=== PATIENT | female | born 2000 | race Caucasian/White ===

== ENCOUNTER 2022-07-18 12:38 | Emergency (ER) | payer MEDICAID, OTHER ==
[~2022-07-18] VITALS: Ht 170.2 cm; Wt 154.7 kg
[2022-07-18] MEDS ORDERED: ADENOSINE 6MG 2ML INJECTION As Ordered ONE (13:03)
[2022-07-18] MEDS ORDERED: ADENOSINE 6MG 2ML INJECTION IV STA ×2 (13:03→13:12)
[2022-07-18] MEDS ORDERED: NS 1,000 ML IV ONE (13:05)
[2022-07-18 13:32] LABS: BASO % 0.5 % (0.0-1.0); EOS # 0.2 10^3/uL (0.0-0.5); EOS % 2.8 % (0.0-3.0); HEMATOCRIT 44.1 % (36.0-47.0); HEMOGLOBIN 13.9 g/dl (12.0-15.5); LYMPH # 2.4 10^3/uL (1.5-5.0); LYMPH % 30.5 % (24.0-44.0); MEAN CORPUSCULAR HEMOGLOBIN 28.5 pg (27.0-33.0); MEAN CORPUSCULAR HGB CONC 31.5 g/dl (32.0-36.5); MEAN CORPUSCULAR VOLUME 90.4 fl (80.0-96.0); MONO # 0.5 10^3/uL (0.0-0.8); MONO % 5.9 % (2.0-8.0); NEUTROPHILS # 4.8 10^3/uL (1.5-8.5); PLATELET COUNT, AUTOMATED 288 10^3/uL (150-450); RED BLOOD COUNT 4.88 10^6/uL (4.00-5.40)
[2022-07-18 13:42] LABS: PROTHROMBIN TIME 13.4 SECONDS (12.5-14.5)
[2022-07-18 13:56] LABS: CPK CREATINE PHOSPHOKINASE 71 U/L (34-145)
[2022-07-18 13:57] LABS: BLOOD UREA NITROGEN 10 MG/DL (9-23); CALCIUM LEVEL 10.5 MG/DL (8.5-10.1); CARBON DIOXIDE LEVEL 28 MMOL/L (20-31); CHLORIDE LEVEL 106 MMOL/L (98-107); CK-MB VALUE MASS < 1.0 NG/ML (<3.6); CREATININE FOR GFR 0.77 MG/DL (0.55-1.30); GLOMERULAR FILTRATION RATE > 60.0 (>60); GLUCOSE, FASTING 96 MG/DL (60-100); POTASSIUM SERUM 4.2 MMOL/L (3.5-5.1); SODIUM LEVEL 142 MMOL/L (136-145)
[2022-07-18] MEDS ORDERED: ASPI81TA26 PO (14:55)
[2022-07-18 15:04] VITALS: BP 131/58; TEMP 97.9; O2SAT 98
== END 2022-07-18 15:25 | disposition home or self-care (01) ==
LOC: M ED 12:38 → EDBD 12:38 → M ED 15:25
DX: I47.1 Supraventricular tachycardia (principal)
CPT/HCPCS: 71045; 80048; 82550; 82553; 85025; 85610; 93005; 93041; 94760; 96374; 96376; 99285; J0153

== ENCOUNTER → 2022-08-17 | Outpatient (REF) | payer OTHER ==
[~2022-08-17] MED LIST: ASPI81TA26 PO
[2022-08-17 16:35] LABS: BASO % 0.5 % (0.0-1.0); EOS # 0.2 10^3/uL (0.0-0.5); EOS % 3.3 % (0.0-3.0); HEMATOCRIT 43.4 % (36.0-47.0); HEMOGLOBIN 13.9 g/dl (12.0-15.5); LYMPH # 2.4 10^3/uL (1.5-5.0); LYMPH % 37.2 % (24.0-44.0); MEAN CORPUSCULAR HEMOGLOBIN 28.8 pg (27.0-33.0); MEAN CORPUSCULAR VOLUME 89.9 fl (80.0-96.0); MONO # 0.6 10^3/uL (0.0-0.8); NEUTROPHILS # 3.1 10^3/uL (1.5-8.5); NEUTROPHILS % 48.7 % (36.0-66.0); PLATELET COUNT, AUTOMATED 258 10^3/uL (150-450); RED BLOOD COUNT 4.83 10^6/uL (4.00-5.40); WHITE BLOOD COUNT 6.4 10^3/uL (4.0-10.0)
[2022-08-17 16:45] LABS: ALBUMIN 3.9 G/DL (3.2-5.2); ALKALINE PHOSPHATASE 86 U/L (46-116); ALT/SGPT 90 U/L (7.0-40); AST/SGOT 49 U/L (<34); BILIRUBIN,TOTAL 0.4 MG/DL (0.3-1.2); BLOOD UREA NITROGEN 10 MG/DL (9-23); CALCIUM LEVEL 10.5 MG/DL (8.5-10.1); CARBON DIOXIDE LEVEL 27 MMOL/L (20-31); CHLORIDE LEVEL 104 MMOL/L (98-107); CHOLESTEROL LEVEL 117 MG/DL (<200); CHOLESTEROL RISK RATIO 3.23 (<5); CREATININE FOR GFR 0.71 MG/DL (0.55-1.30); GLOMERULAR FILTRATION RATE > 60.0 (>60); GLUCOSE, FASTING 107 MG/DL (60-100); HDL CHOLESTEROL 36.2 MG/DL (>40); NON-HDL-C 80.8 MG/DL; POTASSIUM SERUM 4.2 MMOL/L (3.5-5.1); SODIUM LEVEL 138 MMOL/L (136-145); TOTAL PROTEIN 7.7 G/DL (5.7-8.2); TRIGLYCERIDES LEVEL 149 MG/DL (<150)
[2022-08-17 16:47] LABS: TOTAL 25(OH) VITAMIN D 9.9 NG/ML (20.0-100.0)
== END ==
LOC: M LAB REF 16:15
PROVIDERS: ATTEND Nurse Practitioner Family
DX: Z13.228 Encounter for screening for other metabolic disorders (principal)

== ENCOUNTER 2022-09-23 08:34 | Emergency (ER) | payer OTHER ==
[~2022-09-23] VITALS: Ht 172.7 cm; Wt 151.6 kg
[2022-09-23 11:29] LABS: BASO % 0.4 % (0.0-1.0); EOS # 0.3 10^3/uL (0.0-0.5); EOS % 3.5 % (0.0-3.0); HEMATOCRIT 44.2 % (36.0-47.0); LYMPH # 2.8 10^3/uL (1.5-5.0); LYMPH % 37.9 % (24.0-44.0); MEAN CORPUSCULAR HEMOGLOBIN 28.3 pg (27.0-33.0); MEAN CORPUSCULAR HGB CONC 31.7 g/dl (32.0-36.5); MEAN CORPUSCULAR VOLUME 89.3 fl (80.0-96.0); MONO # 0.4 10^3/uL (0.0-0.8); MONO % 5.6 % (2.0-8.0); NEUTROPHILS # 3.9 10^3/uL (1.5-8.5); NEUTROPHILS % 52.5 % (36.0-66.0); PLATELET COUNT, AUTOMATED 237 10^3/uL (150-450); RED BLOOD COUNT 4.95 10^6/uL (4.00-5.40); WHITE BLOOD COUNT 7.4 10^3/uL (4.0-10.0)
[2022-09-23] MEDS ORDERED: NS 1,000 ML IV ONE (11:35)
[2022-09-23 11:59] LABS: BLOOD UREA NITROGEN 12 MG/DL (9-23); CALCIUM LEVEL 9.7 MG/DL (8.5-10.1); CARBON DIOXIDE LEVEL 27 MMOL/L (20-31); CHLORIDE LEVEL 103 MMOL/L (98-107); CREATININE FOR GFR 0.65 MG/DL (0.55-1.30); GLOMERULAR FILTRATION RATE > 60.0 (>60); GLUCOSE, FASTING 88 MG/DL (60-100); SODIUM LEVEL 139 MMOL/L (136-145)
[2022-09-23 12:01] LABS: FREE T4 0.92 NG/DL (0.89-1.76); THYROID STIMULATING HORMONE 1.754 uIU/ML (0.55-4.78)
[2022-09-23 13:01] VITALS: BP 136/66; TEMP 97.8; O2SAT 100
== END 2022-09-23 13:03 | disposition home or self-care (01) ==
LOC: M ED 08:34
DX: I47.1 Supraventricular tachycardia (principal); I49.1 Atrial premature depolarization; Z79.82 Long term (current) use of aspirin

== ENCOUNTER → 2022-10-06 | Outpatient (CLI) | payer OTHER | LOC: M SLEEP HO 12:41 | PROVIDERS: ATTEND Internal Medicine Cardiovascular Disease | DX: G47.9 Sleep disorder, unspecified (principal); R60.0 Localized edema; J98.4 Other disorders of lung ==

== ENCOUNTER → 2022-10-06 | Outpatient (CLI) | payer OTHER | LOC: M CARPUL 10:34 | PROVIDERS: ATTEND Nurse Practitioner Family | DX: I47.1 Supraventricular tachycardia (principal) ==

== ENCOUNTER → 2022-11-25 | Outpatient (REF) | payer OTHER ==
[2022-11-25 13:05] LABS: ALBUMIN 3.6 G/DL (3.2-5.2); BILIRUBIN,DIRECT 0.1 MG/DL (<0.4); BILIRUBIN,TOTAL 0.3 MG/DL (0.3-1.2); TOTAL PROTEIN 7.2 G/DL (5.7-8.2)
[2022-11-25 13:15] LABS: HEMOGLOBIN A1c 4.7 % (4.0-6.0)
== END ==
LOC: M LAB REF 11:37
PROVIDERS: ATTEND Nurse Practitioner Family
DX: R74.8 Abnormal levels of other serum enzymes (principal); R73.03 Prediabetes

== ENCOUNTER 2022-12-08 08:52 | Emergency (ER) | payer OTHER ==
[~2022-12-08] VITALS: Ht 172.7 cm; Wt 151.5 kg
[2022-12-08] MEDS ORDERED: DIGO0.253 (08:59)
[2022-12-08] MEDS ORDERED: ERGO500029 (08:59)
[2022-12-08] MEDS ORDERED: ADENOSINE 6MG 2ML INJECTION As Ordered ONE (09:47)
[2022-12-08] MEDS ORDERED: ADENOSINE 6MG 2ML INJECTION IV STA (09:54)
[2022-12-08] MEDS ORDERED: NS 1,000 ML IV ONE (09:55)
[2022-12-08 10:11] LABS: BASO % 0.5 % (0.0-1.0); EOS # 0.3 10^3/uL (0.0-0.5); EOS % 3.5 % (0.0-3.0); HEMATOCRIT 44.1 % (36.0-47.0); HEMOGLOBIN 13.9 g/dl (12.0-15.5); LYMPH # 2.6 10^3/uL (1.5-5.0); LYMPH % 30.9 % (24.0-44.0); MEAN CORPUSCULAR HGB CONC 31.5 g/dl (32.0-36.5); MEAN CORPUSCULAR VOLUME 88.7 fl (80.0-96.0); MONO # 0.5 10^3/uL (0.0-0.8); MONO % 5.7 % (2.0-8.0); NEUTROPHILS % 59.2 % (36.0-66.0); PLATELET COUNT, AUTOMATED 279 10^3/uL (150-450); RED BLOOD COUNT 4.97 10^6/uL (4.00-5.40); WHITE BLOOD COUNT 8.5 10^3/uL (4.0-10.0)
[2022-12-08] MEDS ORDERED: atenoloL 25 MG TAB PO ONE (10:15)
[2022-12-08 10:20] VITALS: BP 139/95
[2022-12-08 10:24] LABS: CPK CREATINE PHOSPHOKINASE 103 U/L (34-145)
[2022-12-08 10:25] LABS: BLOOD UREA NITROGEN 13 MG/DL (9-23); CALCIUM LEVEL 9.6 MG/DL (8.5-10.1); CARBON DIOXIDE LEVEL 28 MMOL/L (20-31); CHLORIDE LEVEL 103 MMOL/L (98-107); CREATININE FOR GFR 0.76 MG/DL (0.55-1.30); GLOMERULAR FILTRATION RATE > 60.0 (>60); GLUCOSE, FASTING 127 MG/DL (60-100); POTASSIUM SERUM 4.2 MMOL/L (3.5-5.1); SODIUM LEVEL 138 MMOL/L (136-145)
[2022-12-08 10:26] LABS: CK-MB VALUE MASS < 1.0 NG/ML (<3.6); MB/CK RELATIVE INDEX 0.97 (< OR =4)
[2022-12-08 10:47] LABS: HCG, SERUM QUALITATIVE NEGATIVE (NEGATIVE)
[2022-12-08 11:00] VITALS: O2SAT 99
[2022-12-08] MEDS ORDERED: ATEN25TA PO (11:07)
[2022-12-08 11:14] VITALS: TEMP 97.2
[2022-12-08 11:17] VITALS: BP 129/64
== END 2022-12-08 11:22 | disposition home or self-care (01) ==
LOC: M ED 08:52
DX: I47.10 Supraventricular tachycardia, unspecified (principal); Z79.899 Other long term (current) drug therapy; Z79.82 Long term (current) use of aspirin
CPT/HCPCS: 80048; 80162; 82550; 82553; 83735; 84703; 85025; 93005; 93041; 96361; 96374; 99284; J0153

== ENCOUNTER 2022-12-11 09:55 | Emergency (ER) | payer OTHER ==
[~2022-12-11] VITALS: Ht 172.7 cm; Wt 151.5 kg
[~2022-12-11 09:55] MED LIST changes: +ATEN25TA PO; +DIGO0.253; +ERGO500029
[2022-12-11 10:43] LABS: BASO % 0.2 % (0.0-1.0); EOS # 0.3 10^3/uL (0.0-0.5); HEMATOCRIT 41.9 % (36.0-47.0); HEMOGLOBIN 13.3 g/dl (12.0-15.5); LYMPH # 2.4 10^3/uL (1.5-5.0); LYMPH % 28.3 % (24.0-44.0); MEAN CORPUSCULAR HEMOGLOBIN 27.9 pg (27.0-33.0); MEAN CORPUSCULAR HGB CONC 31.7 g/dl (32.0-36.5); MEAN CORPUSCULAR VOLUME 87.8 fl (80.0-96.0); MONO # 0.5 10^3/uL (0.0-0.8); MONO % 5.7 % (2.0-8.0); NEUTROPHILS # 5.2 10^3/uL (1.5-8.5); NEUTROPHILS % 62.6 % (36.0-66.0); PLATELET COUNT, AUTOMATED 280 10^3/uL (150-450); RED BLOOD COUNT 4.77 10^6/uL (4.00-5.40); WHITE BLOOD COUNT 8.3 10^3/uL (4.0-10.0)
[2022-12-11] MEDS ORDERED: DIGOXIN INJ 0.5 MG/2 ML AMP IV ONE (10:45)
[2022-12-11 11:11] LABS: ETHYL ALCOHOL (ETHANOL) < 0.003 % (0.000-0.010)
[2022-12-11 11:12] LABS: ALBUMIN 3.8 G/DL (3.2-5.2); ALKALINE PHOSPHATASE 84 U/L (46-116); ALT/SGPT 71 U/L (7.0-40); AST/SGOT 39 U/L (<34); BILIRUBIN,DIRECT 0.1 MG/DL (<0.4); BILIRUBIN,TOTAL 0.4 MG/DL (0.3-1.2); BLOOD UREA NITROGEN 14 MG/DL (9-23); CALCIUM LEVEL 10.3 MG/DL (8.5-10.1); CARBON DIOXIDE LEVEL 29 MMOL/L (20-31); CHLORIDE LEVEL 102 MMOL/L (98-107); CK-MB VALUE MASS < 1.0 NG/ML (<3.6); CREATININE FOR GFR 0.75 MG/DL (0.55-1.30); GLOMERULAR FILTRATION RATE > 60.0 (>60); GLUCOSE, FASTING 108 MG/DL (60-100); HCG, SERUM QUALITATIVE NEGATIVE (NEGATIVE); POTASSIUM SERUM 4.6 MMOL/L (3.5-5.1); SODIUM LEVEL 138 MMOL/L (136-145); TOTAL PROTEIN 7.7 G/DL (5.7-8.2)
[2022-12-11 11:14] LABS: THYROID STIMULATING HORMONE 1.491 uIU/ML (0.55-4.78)
[2022-12-11 11:19] LABS: CPK CREATINE PHOSPHOKINASE 96 U/L (34-145); MB/CK RELATIVE INDEX 1.04 (< OR =4)
[2022-12-11 11:26] LABS: AMPHETAMINES LEVEL URINE NEGATIVE (NEGATIVE); BARBITURATES URINE NEGATIVE (NEGATIVE); BENZODIAZEPINES URINE NEGATIVE (NEGATIVE); CANNABINOIDS URINE NEGATIVE (NEGATIVE); COCAINE METABOLITE URINE NEGATIVE (NEGATIVE); METHADONE URINE NEGATIVE (NEGATIVE); OPIATES URINE NEGATIVE (NEGATIVE); PHENCYCLIDINE URINE NEGATIVE (NEGATIVE)
[2022-12-11 13:00] VITALS: BP 139/61; O2SAT 95
[2022-12-11 13:27] VITALS: TEMP 98.3
== END 2022-12-11 13:46 | disposition short-term general hospital (02) ==
LOC: M ED 09:55
DX: I47.10 Supraventricular tachycardia, unspecified (principal); Z79.899 Other long term (current) drug therapy; Z79.82 Long term (current) use of aspirin
CPT/HCPCS: 71045; 80048; 80076; 80307; 82077; 82550; 82553; 83735; 84443; 84703; 85025; 87486; 87581; 87633; 87798; 93005; 93041; 94760; 96374; 99285; J1160

== ENCOUNTER 2023-01-21 09:27 | Inpatient (IN) | payer OTHER ==
[~2023-01-21] VITALS: Ht 172.7 cm; Wt 150.4 kg
[~2023-01-21 09:27] MED LIST changes: +ASPIRIN 325 MG TAB PO SCH; -ERGO500029; +ERGO500029 PO; +FLECAINIDE 50MG TABLET PO SCH; +atenoloL 50 MG TAB PO SCH
[2023-01-21] MEDS ORDERED: ATEN50TA2 PO (09:35)
[2023-01-21] MEDS ORDERED: FLEC25TA PO (09:35)
[2023-01-21] MEDS ORDERED: MED REC IN PROGRESS XX SCH (10:00)
[2023-01-21 10:04] LABS: HEMATOCRIT 40.8 % (36.0-47.0); HEMOGLOBIN 13.1 g/dl (12.0-15.5); MEAN CORPUSCULAR HEMOGLOBIN 28.5 pg (27.0-33.0); MEAN CORPUSCULAR HGB CONC 32.1 g/dl (32.0-36.5); MEAN CORPUSCULAR VOLUME 88.9 fl (80.0-96.0); PLATELET COUNT, AUTOMATED 266 10^3/uL (150-450); RED BLOOD COUNT 4.59 10^6/uL (4.00-5.40); WHITE BLOOD COUNT 7.2 10^3/uL (4.0-10.0)
[2023-01-21] MEDS ORDERED: ASPI81CH33 PO (10:24)
[2023-01-21 10:29] LABS: HCG, SERUM QUALITATIVE NEGATIVE (NEGATIVE)
[2023-01-21] MEDS ORDERED: HOME MED LIST COMPLETE! XX SCH (10:30)
[2023-01-21 10:54] LABS: AMPHETAMINES LEVEL URINE NEGATIVE (NEGATIVE); BARBITURATES URINE NEGATIVE (NEGATIVE); BENZODIAZEPINES URINE NEGATIVE (NEGATIVE); CANNABINOIDS URINE NEGATIVE (NEGATIVE); COCAINE METABOLITE URINE NEGATIVE (NEGATIVE); METHADONE URINE NEGATIVE (NEGATIVE); OPIATES URINE NEGATIVE (NEGATIVE); PHENCYCLIDINE URINE NEGATIVE (NEGATIVE)
[2023-01-21 10:54] LABS: ETHYL ALCOHOL (ETHANOL) < 0.003 % (0.000-0.010); SALICYLATE LEVEL < 3.0 MG/DL (<30); THYROID STIMULATING HORMONE 2.611 uIU/ML (0.55-4.78)
[2023-01-21 11:02] LABS: ALBUMIN 3.8 G/DL (3.2-5.2); ALKALINE PHOSPHATASE 89 U/L (46-116); ALT/SGPT 53 U/L (7.0-40); AST/SGOT 24 U/L (<34); BILIRUBIN,DIRECT 0.1 MG/DL (<0.4); BILIRUBIN,TOTAL 0.2 MG/DL (0.3-1.2); BLOOD UREA NITROGEN 9 MG/DL (9-23); CARBON DIOXIDE LEVEL 26 MMOL/L (20-31); CHLORIDE LEVEL 107 MMOL/L (98-107); GLOMERULAR FILTRATION RATE > 60.0 (>60); GLUCOSE, FASTING 112 MG/DL (60-100); POTASSIUM SERUM 4.6 MMOL/L (3.5-5.1); SODIUM LEVEL 142 MMOL/L (136-145); TOTAL PROTEIN 7.4 G/DL (5.7-8.2)
[2023-01-21] MEDS ORDERED: ACETAMINOPHEN TAB 650MG DOSE (2X325MG) PO PRN (20:00)
[2023-01-21] MEDS ORDERED: traZODone 50 MG TAB PO PRN (20:00)
[2023-01-21] MEDS ORDERED: MOM 30ML SUSPENSION UDC PO PRN (20:00)
[2023-01-21] MEDS ORDERED: IBUPROFEN 400MG TAB PO PRN (20:00)
[2023-01-21] MEDS ORDERED: MAALOX 30 ML SUSP *UDC PO PRN (20:00)
[2023-01-21] MEDS: FLECAINIDE 50MG TABLET PO SCH (22:41)
[2023-01-21 22:53] VITALS: BP 123/70; TEMP 98.2; O2SAT 18
[2023-01-22 06:00] VITALS: BP 144/72; TEMP 98.9; O2SAT 98
[2023-01-22] MEDS: FLECAINIDE 50MG TABLET PO SCH ×2 (09:17→21:27)
[2023-01-22] MEDS: ASPIRIN 81MG CHEW TABLET PO SCH (09:17)
[2023-01-22] MEDS: atenoloL 50 MG TAB PO SCH (09:17)
[2023-01-22 16:08] VITALS: BP 132/78; TEMP 98.4; O2SAT 97
[2023-01-23 06:26] VITALS: BP 113/56; TEMP 97.7; O2SAT 94
[2023-01-23] MEDS: SERTRALINE HCL 50 MG TAB PO SCH (08:28)
[2023-01-23] MEDS: FLECAINIDE 50MG TABLET PO SCH ×2 (08:28→20:41)
[2023-01-23] MEDS: atenoloL 50 MG TAB PO SCH (08:28)
[2023-01-23] MEDS: ASPIRIN 81MG CHEW TABLET PO SCH (08:28)
[2023-01-23 16:08] VITALS: BP 128/69; TEMP 98.7; O2SAT 96
[2023-01-24 02:25] VITALS: BP 151/20; O2SAT 100
[2023-01-24] MEDS: diphenhydrAMINE 25MG CAP PO PRN ×2 (03:08→17:02)
[2023-01-24 03:59] LABS: BASO % 0.5 % (0.0-1.0); EOS # 0.3 10^3/uL (0.0-0.5); EOS % 3.9 % (0.0-3.0); HEMATOCRIT 39.9 % (36.0-47.0); HEMOGLOBIN 12.8 g/dl (12.0-15.5); LYMPH # 3.4 10^3/uL (1.5-5.0); MEAN CORPUSCULAR HEMOGLOBIN 28.4 pg (27.0-33.0); MEAN CORPUSCULAR HGB CONC 32.1 g/dl (32.0-36.5); MEAN CORPUSCULAR VOLUME 88.5 fl (80.0-96.0); MONO # 0.5 10^3/uL (0.0-0.8); MONO % 5.9 % (2.0-8.0); NEUTROPHILS # 4.6 10^3/uL (1.5-8.5); NEUTROPHILS % 51.5 % (36.0-66.0); PLATELET COUNT, AUTOMATED 291 10^3/uL (150-450); RED BLOOD COUNT 4.51 10^6/uL (4.00-5.40); WHITE BLOOD COUNT 8.8 10^3/uL (4.0-10.0)
[2023-01-24 04:20] LABS: CPK CREATINE PHOSPHOKINASE 77 U/L (34-145)
[2023-01-24 04:22] LABS: ALBUMIN 3.9 G/DL (3.2-5.2); ALKALINE PHOSPHATASE 86 U/L (46-116); ALT/SGPT 64 U/L (7.0-40); AST/SGOT 35 U/L (<34); BILIRUBIN,TOTAL 0.6 MG/DL (0.3-1.2); BLOOD UREA NITROGEN 14 MG/DL (9-23); CALCIUM LEVEL 9.7 MG/DL (8.5-10.1); CARBON DIOXIDE LEVEL 28 MMOL/L (20-31); CHLORIDE LEVEL 103 MMOL/L (98-107); CK-MB VALUE MASS < 1.0 NG/ML (<3.6); CREATININE FOR GFR 0.76 MG/DL (0.55-1.30); GLOMERULAR FILTRATION RATE > 60.0 (>60); GLUCOSE, FASTING 96 MG/DL (60-100); MB/CK RELATIVE INDEX 1.29 (< OR =4); POTASSIUM SERUM 4.2 MMOL/L (3.5-5.1); SODIUM LEVEL 138 MMOL/L (136-145); TOTAL PROTEIN 7.7 G/DL (5.7-8.2)
[2023-01-24 06:35] VITALS: BP 126/62; TEMP 97.7; O2SAT 100
[2023-01-24] MEDS: FLECAINIDE 50MG TABLET PO SCH ×2 (08:25→20:48)
[2023-01-24] MEDS: SERTRALINE HCL 50 MG TAB PO SCH (08:25)
[2023-01-24] MEDS: atenoloL 50 MG TAB PO SCH (08:25)
[2023-01-24] MEDS: ASPIRIN 81MG CHEW TABLET PO SCH (08:25)
[2023-01-24 16:08] VITALS: BP 127/60; TEMP 97.5; O2SAT 17
[2023-01-25] MEDS: traZODone 100 MG TAB PO PRN ×2 (00:41→23:03)
[2023-01-25 06:29] VITALS: BP 134/70; TEMP 98.9; O2SAT 96
[2023-01-25] MEDS: ASPIRIN 81MG CHEW TABLET PO SCH (09:23)
[2023-01-25] MEDS: SERTRALINE HCL 50 MG TAB PO SCH (09:24)
[2023-01-25] MEDS: atenoloL 50 MG TAB PO SCH (09:24)
[2023-01-25] MEDS: FLECAINIDE 50MG TABLET PO SCH ×2 (09:24→20:05)
[2023-01-25 18:42] VITALS: BP 122/59; TEMP 97.3; O2SAT 97
[2023-01-25] MEDS: diphenhydrAMINE 25MG CAP PO PRN (23:35)
[2023-01-26 06:25] VITALS: BP 136/60; TEMP 96.9; O2SAT 96
[2023-01-26] MEDS: FLECAINIDE 50MG TABLET PO SCH (08:15)
[2023-01-26] MEDS: SERTRALINE HCL 50 MG TAB PO SCH (08:15)
[2023-01-26] MEDS: ASPIRIN 81MG CHEW TABLET PO SCH (08:15)
[2023-01-26 08:18] VITALS: BP 120/64
[2023-01-26] MEDS: atenoloL 50 MG TAB PO SCH (08:18)
[2023-01-26] MEDS ORDERED: SERT50TA29 PO (08:50)
== END 2023-01-26 12:37 | disposition home or self-care (01) | DRG 757 ==
LOC: M ED 09:27 → M ED INP 19:59 → M PSY 22:51
PROVIDERS: ADMIT Student in an Organized Health Care Education/Training Program; ATTEND Student in an Organized Health Care Education/Training Program
DX: F06.31 Mood disorder due to known physiological condition with depressive features (principal); I47.10 Supraventricular tachycardia, unspecified; R45.851 Suicidal ideations; F32.A Depression, unspecified; G47.00 Insomnia, unspecified; Z91.51 Personal history of suicidal behavior; Z62.810 Personal history of physical and sexual abuse in childhood; Z62.811 Personal history of psychological abuse in childhood; Z62.812 Personal history of neglect in childhood; Z79.82 Long term (current) use of aspirin; Z79.899 Other long term (current) drug therapy; Z20.822 Contact with and (suspected) exposure to COVID-19; Z81.1 Family history of alcohol abuse and dependence; Z83.3 Family history of diabetes mellitus

== ENCOUNTER → 2023-02-11 | Outpatient (CLI) | payer OTHER ==
[~2023-02-11] MED LIST changes: +ASPI81CH33 PO; -ASPIRIN 325 MG TAB PO SCH; +ATEN50TA2 PO; +DIGO0.253 PO; +FLEC25TA PO; -FLECAINIDE 50MG TABLET PO SCH; +SERT50TA29 PO; -atenoloL 50 MG TAB PO SCH
== END ==
LOC: M EKG 09:07
PROVIDERS: ATTEND Internal Medicine Cardiovascular Disease
DX: I49.1 Atrial premature depolarization (principal)

== ENCOUNTER → 2023-02-22 | Outpatient (REF) | payer OTHER ==
[2023-02-22 14:17] LABS: BASO # 0.1 10^3/uL (0.0-0.2); BASO % 0.5 % (0.0-1.0); EOS # 0.4 10^3/uL (0.0-0.5); EOS % 3.3 % (0.0-3.0); HEMOGLOBIN 13.3 g/dl (12.0-15.5); LYMPH # 3.8 10^3/uL (1.5-5.0); LYMPH % 36.1 % (24.0-44.0); MEAN CORPUSCULAR HEMOGLOBIN 28.3 pg (27.0-33.0); MEAN CORPUSCULAR HGB CONC 31.7 g/dl (32.0-36.5); MEAN CORPUSCULAR VOLUME 89.4 fl (80.0-96.0); MONO # 0.6 10^3/uL (0.0-0.8); MONO % 5.4 % (2.0-8.0); NEUTROPHILS # 5.7 10^3/uL (1.5-8.5); NEUTROPHILS % 54.5 % (36.0-66.0); PLATELET COUNT, AUTOMATED 302 10^3/uL (150-450); WHITE BLOOD COUNT 10.5 10^3/uL (4.0-10.0)
[2023-02-22 14:28] LABS: ALBUMIN 3.8 G/DL (3.2-5.2); ALKALINE PHOSPHATASE 98 U/L (46-116); ALT/SGPT 54 U/L (7.0-40); AST/SGOT 24 U/L (<34); BILIRUBIN,TOTAL 0.4 MG/DL (0.3-1.2); BLOOD UREA NITROGEN 12 MG/DL (9-23); CALCIUM LEVEL 9.9 MG/DL (8.5-10.1); CARBON DIOXIDE LEVEL 29 MMOL/L (20-31); CHLORIDE LEVEL 107 MMOL/L (98-107); CREATININE FOR GFR 0.73 MG/DL (0.55-1.30); GLOMERULAR FILTRATION RATE > 60.0 (>60); GLUCOSE, FASTING 106 MG/DL (60-100); POTASSIUM SERUM 4.9 MMOL/L (3.5-5.1); SODIUM LEVEL 142 MMOL/L (136-145); TOTAL PROTEIN 7.3 G/DL (5.7-8.2)
[2023-02-22 14:32] LABS: TOTAL 25(OH) VITAMIN D 39.6 NG/ML (20.0-100.0)
[2023-02-22 14:44] LABS: HEMOGLOBIN A1c 5.2 % (4.0-6.0)
== END ==
LOC: M LAB REF 12:07
PROVIDERS: ATTEND Nurse Practitioner Family
DX: Z13.228 Encounter for screening for other metabolic disorders (principal)

== ENCOUNTER 2023-07-29 21:57 | Emergency (ER) | payer OTHER ==
[~2023-07-29] VITALS: Ht 172.7 cm; Wt 148.3 kg
[2023-07-30] MEDS ORDERED: HYDR-3713 PO (01:16)
[2023-07-30] MEDS ORDERED: AMOX875T2 PO (01:16)
[2023-07-30] MEDS: AUGMENTIN 875 MG TAB PO ONE (01:19)
[2023-07-30] MEDS: NORCO, ANEXSIA 5/325MG TABLET (HYDROcodone/ACETAMINOPHEN) PO ONE (01:19)
[2023-07-30 01:31] VITALS: BP 124/88; TEMP 98.8; O2SAT 98
== END 2023-07-30 01:33 | disposition home or self-care (01) ==
LOC: M ED 21:57
DX: K02.9 Dental caries, unspecified (principal); K08.89 Other specified disorders of teeth and supporting structures; F41.9 Anxiety disorder, unspecified; F32.A Depression, unspecified; Z79.82 Long term (current) use of aspirin; Z79.899 Other long term (current) drug therapy

== ENCOUNTER → 2023-12-06 | Outpatient (REF) | payer OTHER ==
[~2023-12-06] MED LIST changes: +AMOX875T2 PO; +HYDR-3713 PO
[2023-12-06 17:18] LABS: ALBUMIN 3.9 G/DL (3.2-5.2); ALKALINE PHOSPHATASE 83 U/L (46-116); ALT/SGPT 58 U/L (7.0-40); AST/SGOT 28 U/L (<34); BILIRUBIN,TOTAL 0.4 MG/DL (0.3-1.2); BLOOD UREA NITROGEN 8 MG/DL (9-23); CALCIUM LEVEL 10.6 MG/DL (8.5-10.1); CARBON DIOXIDE LEVEL 26 MMOL/L (20-31); CHLORIDE LEVEL 108 MMOL/L (98-107); CHOLESTEROL LEVEL 131 MG/DL (<200); CHOLESTEROL RISK RATIO 2.91 (<5); GLOMERULAR FILTRATION RATE > 60.0 (>60); GLUCOSE, FASTING 82 MG/DL (60-100); MAGNESIUM LEVEL 2.2 MG/DL (1.8-2.4); POTASSIUM SERUM 4.3 MMOL/L (3.5-5.1); SODIUM LEVEL 138 MMOL/L (136-145); TOTAL PROTEIN 8.2 G/DL (5.7-8.2); TRIGLYCERIDES LEVEL 150 MG/DL (<150)
[2023-12-06 17:20] LABS: THYROID STIMULATING HORMONE 0.968 uIU/ML (0.55-4.78)
[2023-12-06 17:21] LABS: BASO % 0.3 % (0.0-1.0); EOS # 0.2 10^3/uL (0.0-0.5); EOS % 2.2 % (0.0-3.0); HEMATOCRIT 43.2 % (36.0-47.0); HEMOGLOBIN 13.7 g/dl (12.0-15.5); LYMPH # 2.7 10^3/uL (1.5-5.0); MEAN CORPUSCULAR HEMOGLOBIN 28.9 pg (27.0-33.0); MEAN CORPUSCULAR HGB CONC 31.7 g/dl (32.0-36.5); MEAN CORPUSCULAR VOLUME 91.1 fl (80.0-96.0); MONO # 0.6 10^3/uL (0.0-0.8); MONO % 7.1 % (2.0-8.0); NEUTROPHILS # 5.1 10^3/uL (1.5-8.5); NEUTROPHILS % 59.2 % (36.0-66.0); PLATELET COUNT, AUTOMATED 311 10^3/uL (150-450); RED BLOOD COUNT 4.74 10^6/uL (4.00-5.40); WHITE BLOOD COUNT 8.7 10^3/uL (4.0-10.0)
[2023-12-06 17:36] LABS: HEMOGLOBIN A1c 4.9 % (4.0-6.0)
== END ==
LOC: M LAB REF 16:33
PROVIDERS: ATTEND Nurse Practitioner Family
DX: E66.01 Morbid (severe) obesity due to excess calories (principal)

== ENCOUNTER → 2024-03-30 | Outpatient (CLI) | payer OTHER ==
[2024-03-30 14:32] LABS: FOLLICLE STIMULATING HORMONE 7.5 mIU/ML; LUTEINIZING HORMONE 10.1 mIU/ML
[2024-03-30 14:33] LABS: FREE T4 1.16 NG/DL (0.89-1.76); PROLACTIN 7.06 NG/ML
[2024-03-31 07:10] LABS: THYROID STIMULATING HORMONE 1.727 uIU/ML (0.55-4.78)
== END ==
LOC: M RAD 12:47
PROVIDERS: ATTEND Obstetrics & Gynecology
DX: N91.2 Amenorrhea, unspecified (principal)

== ENCOUNTER 2024-05-02 09:22 | Emergency (ER) | payer OTHER ==
[~2024-05-02] VITALS: Ht 172.7 cm; Wt 145.1 kg
[2024-05-02] MEDS ORDERED: LORY1TAB2 (09:29)
[2024-05-02] MEDS ORDERED: METF500T13 (09:29)
[2024-05-02] MEDS: KETOROLAC 30 MG/ML 1ML VIAL IM ONE (09:52)
[2024-05-02] MEDS: ONDANSETRON 4MG ORAL DISINTEGRATING TAB PO ONE (09:53)
[2024-05-02] MEDS ORDERED: ISOVUE-370 76% 100ML VIAL As Ordered ONE (11:20)
[2024-05-02] MEDS ORDERED: KETO10TAB PO (11:49)
[2024-05-02 11:56] VITALS: BP 137/83; TEMP 97.8; O2SAT 99
== END 2024-05-02 12:01 | disposition home or self-care (01) ==
LOC: M ED 09:51
DX: K13.79 Other lesions of oral mucosa (principal); K02.9 Dental caries, unspecified; Z79.3 Long term (current) use of hormonal contraceptives; Z79.899 Other long term (current) drug therapy
CPT/HCPCS: 70487; 80047; 84702; 96372; 99284; J1885; Q9967